=== PATIENT | female | born 1995 | race Caucasian/White ===

== ENCOUNTER 2020-09-29 21:16 | Emergency (ER) | payer OTHER ==
[~2020-09-29] VITALS: Ht 165.1 cm; Wt 67.2 kg
[2020-09-29 21:16] VITALS: BP 166/67
[2020-09-29] MEDS ORDERED: LIDO:MAALOX 1:1 20 ML SINGLE DOSE. PO ONE (22:00)
[2020-09-29] MEDS ORDERED: ONDA4TAB7 PO (22:08)
--- NOTE | 2020-09-29 22:08 | PHYS DOC ---
Past History Past Medical History: Other Additional Past Medical Histor: eosinophilia, gastritis Past Surgical History: No Surgical History Alcohol Use: None Adult General Chief Complaint Chief Complaint: MUSCLE SPASM/CRAMP HPI HPI Patient is an otherwise healthy 24-year-old female who presents with a chief complaint of approximately 1 day of body aches, fatigue and fevers at home to 101. 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 States she was tested this morning but will get her results back until tomorrow or the next day. Denies any chest pain, shortness of breath, abdominal pain, vomiting, diarrhea, dysuria, hematuria or blood in the stool. States she is otherwise eating and drinking normally. States she is making urine and stool normally for her. States she did take some Tylenol earlier before coming to the emergency department which usually lowers her temperature. Review of Systems Review of Systems Review of systems otherwise unremarkable except noted in HPI Physical Exam Physical Exam Constitutional: Well developed, well nourished, no acute distress, non-toxic appearance. [] HENT: Normocephalic, atraumatic, bilateral external ears normal, oropharynx moist with mild posterior erythema but no edema or exudates Eyes: conjunctiva normal, no discharge. [] Neck: Normal range of motion, no tenderness, supple, no stridor. [] Cardiovascular:Heart rate regular rhythm, no murmur [] Lungs & Thorax: Bilateral breath sounds clear to auscultation [] Abdomen: soft, no tenderness, no masses, no pulsatile masses. [] Skin: Warm, dry, no erythema, no rash. [] Neurologic: Alert and oriented X 3, normal motor function, no focal deficits noted. [] Psychologic: Affect normal, judgement normal, mood normal. [] EKG EKG [] Radiology/Procedures Radiology/Procedures [] Heart Score C/O Chest Pain: No Risk Factors: Risk Factors: DM, Current or recent (<one month) smoker, HTN, HLP, family history of CAD, obesity. Risk Scores: Risk Factors: DM, Current or recent (<one month) smoker, HTN, HLP, family history of CAD, obesity. Course & Med Decision Making Course & Med Decision Making Patient is a 24-year-old female who presents with 1 day of muscle aches, fatigue and fevers to 101 but otherwise well Vital signs not concerning. Physical exam noted above. Patient given GI cocktail for heartburn Discussed with patient symptomatic treatment at home. 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 Given work note to stay at home until she is 24 hours free from fevers or new symptoms. Advised to follow-up with primary care soon as she can to set up a follow-up visit. Gave return precautions to the ED. Patient grateful, verbalized understanding and agreed with plan of discharge. [] Dragon Disclaimer Dragon Disclaimer This electronic medical record was generated, in whole or in part, using a voice recognition dictation system. Departure Departure: Impression: Primary Impression: Viral syndrome Disposition: 01 DC HOME SELF CARE/HOMELESS Condition: GOOD Referrals: SHARITA BARRAZA (PCP) Patient Instructions: Viral Syndrome Additional Instructions: Please read all of the attached information. As discussed please continue to use Tylenol, ibuprofen and Benadryl at home as needed. You are given a prescription for nausea medicine to take as needed and prescribed. Your also g iven a work note to allow you to stay out of work from the group home until you have 24 hours with no fevers or new symptoms as discussed. Please call your primary care physician tomorrow to set up a follow-up appointment as needed. Please come back to the ED with new or concerning symptoms. Scripts Ondansetron Hcl (ZOFRAN) 4 Mg Tablet 1 TAB PO TID PRN for NAUSEA, #6 TAB Prov: XIAO VELA MD 09/29/20 XIAO VELA MD Sep 29, 2020 22:08
== END 2020-09-29 22:29 | disposition home or self-care (01) ==
LOC: ER 21:16
DX: B34.9 Viral infection, unspecified (principal)
CPT/HCPCS: 99283